=== PATIENT | female | born 1955 | race Caucasian/White ===

== ENCOUNTER 2018-03-08 07:59 | Emergency (ER) | payer SELFPAY ==
[2018-03-08 08:21] VITALS: BP 156/105
--- NOTE | 2018-03-08 08:34 | UC ---
Respiratory Complaint HPI - HPI Summary HPI Summary: The patient is a 62-year-old female that has been visiting here from [place]. He has been here 2-1/2 weeks. She states that she has always been sensitive to smoke and smells. She states she is staying with relatives that use a woodstove. Yesterday she was working in the basement Sanding a floor. She said there is black mold at the house. She says she feels like she cannot breathe through her nose she has some sore throat during these episodes and feels like no varies getting into her lungs. She responds properly to pressure and feeling back to normal within minutes. She denies any wheezing. - History of Current Complaint Chief Complaint: UCRespiratory Stated Complaint: ST Time Seen by Provider: 03/08/18 08:23 Hx Obtained From: Patient Onset/Duration: Gradual Onset, Lasting Weeks Timing: Constant Severity Initially: Mild Severity Currently: None Pain Intensity: 0 Pain Scale Used: 0-10 Numeric Character: Cough: Nonproductive - irritant cough Aggravating Factors: Allergens, Other - smoke Alleviating Factors: Other - fresh air Associated Signs And Symptoms: Positive: Nasal Congestion. Negative: Dyspnea, Fever, Chills, Pleuritic Chest Pain, Wheezing, Hemoptysis, Dizziness, Calf Pain , Calf Swelling, Edema, URI, Sinus Discomfort - Allergies/Home Medications Allergies/Adverse Reactions: Allergies Allergy/AdvReac Type Severity Reaction Status Date / Time mold Allergy Sneezing Verified 03/08/18 08:13 wood burning stoves Allergy Shortness Uncoded 03/08/18 08:13 of Breath Home Medications: Home Medications Multivitamin [Multivitamins] 1 cap PO DAILY 03/08/18 [History Confirmed 03/08/18 ] PMH/Surg Hx/FS Hx/Imm Hx Previously Healthy: Yes Cardiovascular History: Hypertension - "white coat" - Surgical History Surgical History: Yes Surgery Procedure, Year, and Place: stent. L ankle - Social History Alcohol Use: None Substance Use Type: None Smoking Status (MU): Never Smoked Tobacco Review of Systems All Other Systems Reviewed And Are Negative: Yes Constitutional: Positive: Negative Skin: Positive: Negative Eyes: Positive: Negative ENT: Positive: Negative Respiratory: Positive: Shortness Of Breath, Cough Cardiovascular: Positive: Negative Gastrointestinal: Positive: Negative Genitourinary: Positive: Negative Motor: Positive: Negative Neurovascular: Positive: Negative Musculoskeletal: Positive: Negative Neurological: Positive: Negative Psychological: Positive: Negative Physical Exam Triage Information Reviewed: Yes Appearance: Well-Appearing, No Pain Distress, Well-Nourished Vital Signs: Initial Vital Signs Temp 98.7 F 03/08/18 08:15 Pulse 104 03/08/18 08:15 Resp 17 03/08/18 08:15 BP 156/105 03/08/18 08:15 Pulse Ox 100 03/08/18 08:15 Vital Signs Reviewed: Yes Eyes: Positive: Conjunctiva Clear ENT: Positive: Hearing grossly normal, TMs normal. Negative: Pharyngeal erythema, Nasal congestion, Nasal drainage, Tonsillar swelling, Tonsillar exudate, Trismus, Muffled voice, Hoarse voice, Dental tenderness, Sinus tenderness, Uvula midline Neck: Positive: Supple, Nontender, No Lymphadenopathy Respiratory: Positive: Lungs clear, Normal breath sounds, No respiratory distress, No accessory muscle use Cardiovascular: Positive: RRR, No Murmur, Pulses Normal Musculoskeletal: Positive: ROM Intact, No Edema Neurological: Positive: Alert Psychological Exam: Normal Skin Exam: Normal UC Diagnostic Evaluation - Laboratory O2 Sat by Pulse Oximetry: 100 - normal/not hypoxic Respiratory Course/Dx - Differential Dx/Diagnosis Provider Diagnoses: Dyspnea by history Discharge - Sign-Out/Discharge Documenting (check all that apply): Patient Departure All imaging exams completed and their final reports reviewed: No Studies - Discharge Plan Condition: Stable Disposition: HOME Prescriptions: predniSONE [Deltasone 20 MG TAB] 40 mg PO DAILY #10 tab Patient Education Materials: Dyspnea (ED) Referrals: No Primary Care Phys,NOPCP [Primary Care Provider] - Additional Instructions: see your MD when you return home recheck here for worsening symptoms - Billing Disposition and Condition Condition: STABLE Disposition: Home
== END 2018-03-08 08:41 | disposition home or self-care (01) ==
LOC: UCCORT 07:59
DX: R06.00 Dyspnea, unspecified (principal); R09.89 Other specified symptoms and signs involving the circulatory and respiratory systems; I10 Essential (primary) hypertension; J02.9 Acute pharyngitis, unspecified; Z91.09 Other allergy status, other than to drugs and biological substances
CPT/HCPCS: 99202; G0463